=== PATIENT | female | born 1955 | race Asian ===

== ENCOUNTER 2017-08-05 08:48 | Emergency (ER) | payer BC ==
[~2017-08-05] VITALS: Ht 152.4 cm; Wt 52.2 kg
[2017-08-05 08:48] VITALS: Ht 152.4 cm; Wt 52.2 kg
[2017-08-05 09:39] LABS: BASOPHIL % 0.6 % (0-2); PLATELET COUNT 258 x10^3mcL (130-400); RED CELL DISTRIBUTION WIDTH 12.1 % (11.5-14.5)
[2017-08-05 10:01] LABS: CALCIUM 8.6 mg/dL (8.5-10.1); CARBON DIOXIDE 25.9 mmol/L (21-32); CHLORIDE SERUM 107 mmol/L (98-107); CREATININE SERUM 0.9 mg/dL (0.6-1.0); GFR1 > 60 mL/min; GLUCOSE SERUM 116 mg/dL (74-106); POTASSIUM SERUM 3.5 mmol/L (3.5-5.1); SODIUM SERUM 142 mmol/L (136-145)
[2017-08-05 10:26] VITALS: BP 109/71
== END 2017-08-05 10:40 | disposition home or self-care (01) ==
LOC: ED 08:48
PROVIDERS: Emergency Medicine
DX: G51.0 Bell's palsy (principal); I10 Essential (primary) hypertension
CPT/HCPCS: 36415; 82962; J7512; Q0092